=== PATIENT | female | born 1980 | race Caucasian/White ===

== ENCOUNTER 2019-01-11 16:41 | Emergency (ER) | payer BC ==
[2019-01-11] MEDS ORDERED: DIPHTH/TETANUS/ACEL. PERTUSSIS IM ONE (16:55)
[2019-01-11] MEDS ORDERED: fentaNYL CITR 100 MCG/2 ML AMP IVP ONE ×2 (16:55→20:00)
[2019-01-11] MEDS ORDERED: NS(*) 0.9% 1000 ML BAG 1,000 ML IV ONE ×2 (16:55→20:00)
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
[2019-01-11 17:04] LABS: PLATELET COUNT, AUTOMATED 280 K/uL (150-450)
[2019-01-11] MEDS ORDERED: IOPAMIDOL 76% 100 ML INFUS BTL 100 ML ONE (17:28)
[2019-01-11 18:15] LABS: INR 0.94
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
--- NOTE | 2019-01-11 18:36 | RADIOLOGY IMAGING REPORT ---
FACILITY: [facility] PATIENT NAME: Gisselle Dennis : 1980 MR: [id number] V: [id number] EXAM DATE: ORDERING PHYSICIAN: RAMIREZ KAMARA TECHNOLOGIST: [place] [facility] [place] Patient: Gisselle Dennis : 1980 Visit/Account:[id number] Date of Sevice: 01/11/2019 EXAMINATION: CT chest with IV contrast CT abdomen with IV contrast CT pelvis with IV contrast HISTORY: [address] [place] accident. TECHNIQUE: Spiral scan was obtained through the chest, abdomen and pelvis during injection of nonio dulce iodinated intravenous contrast. Sagittal and coronal reformatted images are also submitted. One of the following dose optimization techniques was utilized in the performance of this exam: Autom ated exposure control; adjustment of the mA and/or kV according to the patient's size; or use of an i terative reconstruction technique. Specific details can be referenced in the facility's radiology C T exam operational policy. CONTRAST: 75 mL of IV Isovue-370. COMPARISON: None. FINDINGS: CT THORAX: Lungs / pleura: No consolidation, pleural effusion or pneumothorax. No nodule or focal interstitial opacities. Airways are clear. Mediastinum / kristy: No abnormal density. No enlarged lymph nodes. Heart / pericardium: Normal size without pericardial effusion. Vessels: Aorta shows no aneurysm or dissection. The pulmonary arteries are grossly normal. Musculoskeletal / Body wall: There is dislocation of the left glenohumeral joint with compression an d impaction fracture and comminuted fracture of the left humeral head extending to the neck. No other indication of fracture. No discrete or slice rib fractures. Sternum is intact. No vertebral body com pressions. Mild degenerative change seen spine. No aggressive bony lesions. Chest wall shows no enlar ged axillary lymph nodes or masses. CT ABDOMEN AND PELVIS: Liver / biliary: Liver shows no focal abnormality or perihepatic fluid. The gallbladder and biliary s ystem are unremarkable. Pancreas: No focal abnormality. Spleen: No focal abnormality or perisplenic fluid. Adrenal glands: Negative. Kidneys: Subcentimeter hypodensity seen in the superior aspect right kidney is too small characterize and statistically tiny cyst. No other discrete renal lesions. No stones or hydronephrosis. Pelvic structures: Pelvic structures visualized within normal limits. Bowel: Visualized gastrointestinal tract, including the appendix, within normal limits but the stomac h is unremarkable. Peritoneum / retroperitoneum / mesenteries: No free air, free fluid, fluid collections or areas of in flammation. Small umbilical hernia containing fat. Vessels: Negative. Musculoskeletal / Body wall: No acute fractures. Vertebral bodies show no compression. Mild degenerat jose change seen spine. No aggressive bony lesions. Lymph node assessment: Negative. IMPRESSION: 1. The left shoulder does show dislocation with a impacted comminuted fracture of the humeral head ex tending to the neck. 2. The chest shows no other indication of acute abnormality or traumatic injury. 3. The abdomen pelvis show no indication of acute abnormality or traumatic injury. 4. Other chronic findings as above. Report Dictated By: Clif Rudolph at 01/11/2019 6:18 PM Report E-Signed By: Clif Rudolph at 01/11/2019 6:30 PM WSN:[id number]
--- NOTE | 2019-01-11 18:49 | RADIOLOGY IMAGING REPORT ---
FACILITY: [facility] PATIENT NAME: Gisselle Dennis : 1980 MR: [id number] V: [id number] EXAM DATE: ORDERING PHYSICIAN: RAMIREZ KAMARA TECHNOLOGIST: [place] [facility] [place] Gisselle [place] : 1980 Visit/Account:[id number] Date of Sevice: 01/11/2019 HUMERUS LEFT, SHOULDER MIN 2 VIEWS LEFT Indication: Trauma Comparison: None Available Findings: There is anterior inferior dislocation of the humeral head. There is also a greater tuberosity fract ure. IMPRESSION: Fracture dislocation of the humeral head. Report Dictated By: LIN MERINO at 01/11/2019 6:37 PM Report E-Signed By: LIN MERINO at 01/11/2019 6:41 PM WSN:[email or web address]
--- NOTE | 2019-01-11 18:49 | RADIOLOGY IMAGING REPORT ---
FACILITY: [facility] PATIENT NAME: Gisselle Dennis : 1980 MR: [id number] V: [id number] EXAM DATE: ORDERING PHYSICIAN: RAMIREZ KAMARA TECHNOLOGIST: Location: [facility] - [place] Patient: Gisselle Dennis : 1980 Visit/Account:[id number] Date of Sevice: 01/11/2019 HUMERUS LEFT, SHOULDER MIN 2 VIEWS LEFT Indication: Trauma Comparison: None Available Findings: There is anterior inferior dislocation of the humeral head. There is also a greater tuberosity fract ure. IMPRESSION: Fracture dislocation of the humeral head. Report Dictated By: LIN MERINO at 01/11/2019 6:37 PM Report E-Signed By: LIN MERINO at 01/11/2019 6:41 PM WSN:[email or web address]
--- NOTE | 2019-01-11 19:23 | RADIOLOGY IMAGING REPORT ---
[place] [facility] [place]: Gisselle Dennis : 1980 MR: [id number] V: [id number] EXAM DATE: ORDERING PHYSICIAN: RAMIREZ KAMARA TECHNOLOGIST: [place] [facility] [place]isselle [place] : 1980 Visit/Account:[id number] Date of Sevice: 01/11/2019 ELBOW 2 VIEW LEFT, FOREARM LEFT Indication: Pain Comparison: None Available Findings: Lateral view of the elbow is suboptimal. Elbow joint effusion cannot be excluded. No definite evidence of fracture, dislocation, or acute osseous abnormality left elbow. There is no focal soft tissue abnormality. No evidence of radiopaque foreign body. IMPRESSION: 1. Suboptimal lateral view of the left elbow. No definite fracture of the forearm or elbow. Report Dictated By: LIN MERINO at 01/11/2019 7:14 PM Report E-Signed By: LIN MERINO at 01/11/2019 7:17 PM WSN:[email or web address]
--- NOTE | 2019-01-11 19:23 | RADIOLOGY IMAGING REPORT ---
FACILITY: [facility] [place] PATIENT NAME: Gisselle Dennis : 1980 MR: [id number] V: [id number] EXAM DATE: ORDERING PHYSICIAN: RAMIREZ KAMARA TECHNOLOGIST: [place] [facility] [place] Gisselle [place] : 1980 Visit/Account:[id number] Date of Sevice: 01/11/2019 ELBOW 2 VIEW LEFT, FOREARM LEFT Indication: Pain Comparison: None Available Findings: Lateral view of the elbow is suboptimal. Elbow joint effusion cannot be excluded. No definite evidence of fracture, dislocation, or acute osseous abnormality left elbow. There is no focal soft tissue abnormality. No evidence of radiopaque foreign body. IMPRESSION: 1. Suboptimal lateral view of the left elbow. No definite fracture of the forearm or elbow. Report Dictated By: LIN MERINO at 01/11/2019 7:14 PM Report E-Signed By: LIN MERINO at 01/11/2019 7:17 PM WSN:[email or web address]
[2019-01-11] MEDS ORDERED: PROPOFOL EMUL 10MG/ML 20 ML VL IV ONE (20:00)
[2019-01-11] MEDS ORDERED: ONDANSETRON 4 MG/2 ML VIAL IVP ONE (20:10)
--- NOTE | 2019-01-11 21:12 | RADIOLOGY IMAGING REPORT ---
FACILITY: [facility] - [place] PATIENT NAME: Gisselle Dennis : 1980 MR: [id number] V: [id number] EXAM DATE: ORDERING PHYSICIAN: BAR MARAVILLA TECHNOLOGIST: [place] [facility] [place] Gisselle [place] : 1980 Visit/Account:[id number] Date of Sevice: 01/11/2019 SHOULDER MIN 2 VIEWS LEFT Indication: Post reduction Comparison: Prior film same day Findings: The previously dislocated shoulder has been reduced. Persistent fracture of the greater tuberosity. Limited views of the left upper lung zone are unremarkable. Visualized left acromioclavicular joint is unremarkable. IMPRESSION: 1. Interval reduction of the previously dislocated left shoulder. 2. Greater tuberosity fracture. Report Dictated By: LIN MERINO at 01/11/2019 9:03 PM Report E-Signed By: LIN MERINO at 01/11/2019 9:05 PM WSN:[email or web address]
[2019-01-11 23:00] VITALS: BP 146/78
--- NOTE | 2019-01-11 23:02 | RADIOLOGY IMAGING REPORT ---
FACILITY: [facility] PATIENT NAME: Gisselle Dennis : 1980 MR: [id number] V: [id number] EXAM DATE: ORDERING PHYSICIAN: BAR MARAVILLA TECHNOLOGIST: Location: [facility] - [place] Patient: Gisselle Dennis : 1980 Visit/Account:[id number] Date of Sevice: 01/11/2019 CT SHOULDER W/O LT INDICATION: s/p relocation of fracture dislocation EXAM DATE: 01/11/2019 7:58 PM COMPARISON: Same-day radiographs. TECHNIQUE: Axial noncontrast CT images of the left shoulder were obtained. Sagittal and coronal yann nstructions were performed. One of the following dose optimization techniques was utilized in the pe rformance of this exam: Automated exposure control; adjustment of the mA and/or kV according to the p atient's size; or use of an iterative reconstruction technique. Specific details can be referenced in the facility's radiology CT exam operational policy. FINDINGS: There is a comminuted fracture of the greater tuberosity of the humerus with extension to the lateral aspect of the proximal metaphysis. There is focal impaction at the superior lateral aspect of the h umeral head with approximately 9 mm of depression. Associated surrounding soft tissue edema. No add itional fracture or dislocation. Remaining soft tissues are unremarkable IMPRESSION: Comminuted and impacted proximal fracture of the humerus with involvement of the lateral aspect of the humeral head and the greater tuberosity consistent with a Hill-Sachs fracture. Report Dictated By: Toan Álvarez MD at 01/11/2019 10:47 PM Report E-Signed By: Toan Álvarez MD at 01/11/2019 10:55 PM WSN:[id number]
[2019-01-11] MEDS ORDERED: ACET/HYDROC 5/325MG TH ER ONLY 2 TAB/BOTTLE PO ONE (23:05)
[2019-01-11] MEDS ORDERED: APAP/HYDROCODONE 325/5 TAB PO ONE (23:05)
[2019-01-11] MEDS ORDERED: LOR5/325 PO (23:07)
== END 2019-01-11 23:12 | disposition home or self-care (01) ==
LOC: ER 16:59
DX: S42.292A Other displaced fracture of upper end of left humerus, initial encounter for closed fracture (principal); S43.005A Unspecified dislocation of left shoulder joint, initial encounter; M54.2 Cervicalgia
CPT/HCPCS: 23665; 70450; 71260; 72125; 73030; 73060; 73070; 73090; 73200; 74177; 80320; 81001; 83605; 83690; 84703; 85025; 85610; 85730; 90471; 90715; 96361; 96374; 96375; 96376; 99285; A4565; J2405; J2704; J3010; J7030; Q9967; 82040; 82247; 82310; 82374; 82435; 82565; 82947; 84075; 84132; 84155; 84295; 84450; 84460; 84520